=== PATIENT | female | born 1955 | race Caucasian/White ===

== ENCOUNTER → 2017-02-28 | Outpatient (CLI) | payer OTHER | LOC: M WHC 15:07 | PROVIDERS: ATTEND Nurse Practitioner Family | DX: Z12.31 Encounter for screening mammogram for malignant neoplasm of breast (principal) ==

== ENCOUNTER → 2017-02-28 | Outpatient (REF) | payer OTHER | LOC: M SFHCWAGY 15:08 | PROVIDERS: ATTEND Nurse Practitioner Family | DX: Z12.4 Encounter for screening for malignant neoplasm of cervix (principal) ==

== ENCOUNTER → 2018-01-01 | Outpatient (REF) | payer MEDICAID ==
[2018-01-01 12:18] LABS: C REACTIVE PROTEIN QUANTITATIV 0.76 MG/DL (0.00-0.30); RHEUMATOID FACTOR QUANT < 10.0 IU/ML (0-15.0)
[2018-01-01 12:18] LABS: URIC ACID 4.3 MG/DL (2.6-6.0)
== END ==
LOC: M SFHCPLAZ 10:02
DX: M13.0 Polyarthritis, unspecified (principal)

== ENCOUNTER → 2019-03-05 | Outpatient (REF) | payer OTHER | LOC: M SFHCPLAZ 11:00 | PROVIDERS: ATTEND Family Medicine | DX: Z53.9 Procedure and treatment not carried out, unspecified reason (principal); B35.1 Tinea unguium ==

== ENCOUNTER → 2019-04-20 | Outpatient (REF) | payer OTHER ==
[~2019-04-20] MED LIST: PAXI20TA29 PO
[2019-04-20 17:10] LABS: BASO # 0.1 10^3/uL (0.0-0.2); BASO % 0.7 % (0.0-1.0); EOS # 0.4 10^3/uL (0.0-0.50); EOS % 3.6 % (0.0-3.0); HEMATOCRIT 46.8 % (36.0-47.0); LYMPH # 2.8 10^3/uL (1.5-4.5); LYMPH % 26.5 % (24.0-44.0); MEAN CORPUSCULAR HEMOGLOBIN 30.8 pg (27.0-33.0); MEAN CORPUSCULAR HGB CONC 32.1 g/dl (32.0-36.5); MEAN CORPUSCULAR VOLUME 96.1 fl (80.0-96.0); MONO # 0.6 10^3/uL (0.0-0.8); NEUTROPHILS # 6.6 10^3/uL (1.8-7.7); NEUTROPHILS % 62.7 % (36.0-66.0); PLATELET COUNT, AUTOMATED 305 10^3/uL (150-450); RED BLOOD COUNT 4.87 10^6/uL (4.00-5.40); WHITE BLOOD COUNT 10.5 10^3/uL (4.0-10.0)
[2019-04-20 17:29] LABS: INR 0.95; PROTHROMBIN TIME 12.8 SECONDS (12.1-14.4)
[2019-04-20 19:36] LABS: ALBUMIN 4.1 GM/DL (3.2-5.2); ALT/SGPT 27 U/L (12-78); BILIRUBIN,TOTAL 0.3 MG/DL (0.2-1.0); BLOOD UREA NITROGEN 14 MG/DL (7-18); CALCIUM LEVEL 9.7 MG/DL (8.8-10.2); CARBON DIOXIDE LEVEL 29 MEQ/L (21-32); CHLORIDE LEVEL 108 MEQ/L (98-107); CREATININE FOR GFR 0.68 MG/DL (0.55-1.30); GLOMERULAR FILTRATION RATE > 60.0 (>45); GLUCOSE, FASTING 101 MG/DL (70-100); SODIUM LEVEL 142 MEQ/L (136-145); TOTAL PROTEIN 7.3 GM/DL (6.4-8.2)
== END ==
LOC: M SFHCPLAZ 13:20
PROVIDERS: ATTEND Family Medicine
DX: Z01.818 Encounter for other preprocedural examination (principal); B35.1 Tinea unguium

== ENCOUNTER 2019-04-21 09:37 | Day surgery (SDC) | payer OTHER ==
[~2019-04-21] VITALS: Ht 157.5 cm; Wt 61.2 kg
[2019-04-21] MEDS ORDERED: EPINEPHrine INJ 1 MG/ML 1ML AMP ONE (09:38)
[2019-04-21] MEDS ORDERED: ROPIvacaine 0.5% 30 ML INJECTION (J2795 PER 1MG) ONE (09:38)
[2019-04-21] MEDS ORDERED: ceFAZolin SOD 1 GM in D5W MINI-BAG PLUS 50 ML IV ONE (10:00)
[2019-04-21] MEDS ORDERED: LR 1,000 ML IV ONE (10:00)
[2019-04-21] MEDS ORDERED: PROPOFOL 200 MG/20 ML VIAL As Ordered ONE (10:25)
[2019-04-21] MEDS ORDERED: fentaNYL 100 MCG/2 ML INJECTION (J3010) As Ordered ONE ×3 (10:25→13:44)
[2019-04-21] MEDS ORDERED: LIDOCAINE 2% INJ 100 MG/5 ML SDV (FOR ANES.) As Ordered ONE (10:25)
[2019-04-21] MEDS ORDERED: MIDAZOLAM INJ 2 MG/2 ML VIAL (J2250) As Ordered ONE ×2 (10:26→10:59)
[2019-04-21] MEDS ORDERED: fentaNYL 100 MCG/2 ML INJECTION (J3010) IV ONE (12:15)
[2019-04-21] MEDS ORDERED: MIDAZOLAM INJ 2 MG/2 ML VIAL (J2250) IV ONE (12:15)
[2019-04-21] MEDS ORDERED: BUPIVACAINE HCL 0.5% 30 ML VIAL As Ordered ONE (12:16)
[2019-04-21] MEDS ORDERED: ePHEDrine SULFATE 25 MG/5 ML(5MG/ML) SYRINGE As Ordered ONE (13:09)
[2019-04-21] MEDS ORDERED: KETOROLAC 60 MG/2 ML VIAL (J1885) As Ordered ONE (14:10)
[2019-04-21] MEDS ORDERED: dexameTHASONE 4 MG/ML 1ML VIAL (J1100) As Ordered ONE (14:10)
[2019-04-21] MEDS ORDERED: ONDANSETRON 4MG/2ML VIAL (J2405) As Ordered ONE (14:10)
[2019-04-21] MEDS ORDERED: LR 1,000 ML IV SCH ×2 (16:45)
[2019-04-21] MEDS ORDERED: fentaNYL 100 MCG/2 ML INJECTION (J3010) IV PRN (16:45)
[2019-04-21] MEDS ORDERED: oxyCODONE 5MG TAB PO PRN ×2 (16:45)
[2019-04-21] MEDS ORDERED: ONDANSETRON 4MG/2ML VIAL (J2405) IV PRN (16:45)
[2019-04-21] MEDS: NORCO, ANEXSIA 5/325MG TABLET (HYDROcodone/ACETAMINOPHEN) PO PRN ×2 (16:55→17:32)
[2019-04-21 20:07] VITALS: BP 141/87
[2019-04-22 10:27] LABS: HEP C VIRUS AB INDEX SOURCE PT 0.1 INDEX (0.0-0.8); HEPATITIS B SURFACE ANTIGEN NEGATIVE (NEGATIVE)
--- NOTE | 2019-04-22 12:19 | REP ---
C-ARM VIEWS, RIGHT FOOT: Multiple C-arm views of the right foot are performed. Metallic internal fixation bridges the 1st metatarsophalangeal joint. Later images show a metallic pin extending through the phalanges of both the 2nd and 3rd toes. Structures are well aligned. 51 seconds fluoroscopy time utilized. Electronically Signed by Michele Aiken MD 04/23/2019 10:54 A
--- NOTE | 2019-04-23 12:18 | RO ---
DATE OF PROCEDURE: 04/21/2019 PREOPERATIVE DIAGNOSES: Right hallux valgus deformity with first metatarsophalangeal joint (MTP) arthritis and 2nd and 3rd hammertoes. POSTOPERATIVE DIAGNOSES: Right hallux valgus deformity with first metatarsophalangeal joint arthritis and 2nd and 3rd hammertoes. PROCEDURE: 1. Right first metatarsophalangeal joint fusion. 2. Right calcaneal bone graft. 3. Repair of 2nd hammertoe. 4. Repair of 3rd hammertoe. SURGEON: Princess Mijares MD BLUNGER: TAMICA Flowers ANESTHESIA: Laryngeal mask airway (LMA) with popliteal nerve block. ESTIMATED BLOOD LOSS (EBL): 75 mL. COMPLICATIONS: None. CONDITION: Stable to recovery. INDICATIONS: Janeth Patricia is a 64-year-old female who has had longstanding pain from her severe bunion deformity with associated arthritis. She presents for forefoot reconstruction. Risks and benefits of surgery were discussed with the patient in detail and include, but are not limited to infection, damage to nerves and blood vessels, continued pain and stiffness, need for additional procedures. DESCRIPTION OF PROCEDURE: The patient was met in the preoperative holding area where the right lower extremity was marked as the correct operative site. She underwent a popliteal nerve block. She was then taken to the operating room where she was placed in the supine position on the operating room table. Bony prominences were well padded. The patient underwent anesthesia without difficulty. A Ahuja was placed and removed at the end of the case. A well-padded tourniquet was placed on the right upper thigh. Right lower extremity was prepped and draped in normal sterile fashion. The patient received preoperative antibiotics within 60 minutes of incision. An official time-out was held where the correct patient, operative site and operative procedure were verified. The right lower extremity was exsanguinated with an Esmarch and tourniquet was inflated to 250 mmHg. It was up for 150 minutes. Incision was made directly over the first MTP joint. The EHL tendon was retracted laterally. The capsule was incised. There was found to be moderate to severe arthritis on both sides of the joint. The remaining cartilage was removed with a curet. The bone was penetrated on both sides using a 0.062 K-wire. The toe was then reduced in place quite easily. At this point, a small stab incision was made in the lateral aspect of the calcaneal tuberosity. Blunt dissection to the level of bone was performed. Using a 4.0 drill sleeve, calcaneal bone graft was removed. This bone was placed into the first MTP joint. The joint was then pinned in appropriate position. A 3.0 mm lag screw was placed across the joint. This had good compression. Following this a 5 degree medium right medical first MTP joint was selected. It was placed over the first MTP joint. I did bend the plate slightly and it had a nice fit. It was secured distally with 2.0 mm locking screws. Further compression was obtained through the plate using the oblong hole. Remaining 3.5 mm screws were placed proximally in the metatarsal. When I was satisfied with compression and hardware placement, attention was then turned to the 2nd and 3rd toe. An incision was made in the 2nd web space. Both the 2nd and 3rd extensor tendons were identified. These were lengthened in a Z lengthen fashion. This allowed reduction of the deformity at the MTP joint. Following this, the proximal interphalangeal (PIP) joint on both the 2nd and 3rd toe was exposed. Cartilage was removed using a 39 saw. Both joints were reduced and pinned in place using a 0.062 wire. Reduction and hardware placement were confirmed using mini C-arm fluoroscopy. When I was satisfied with reduction and hardware placement, all wounds were copiously irrigated. Any remaining bone graft was placed into the dorsal aspect of the first MTP joint after I burred holes on both the medial and lateral sides for the bone graft. The capsule was closed using #2-0 Vicryl. Soft tissues were closed using #3-0 Vicryl throughout the foot. The skin was closed using #3-0 nylon and #4-0 Monocryl at the toes. A sterile dressing was applied, and the patient was placed into a well-padded splint. PLAN: The patient will be non-weightbearing for 6 weeks. She will see me back in 2 weeks for wound check and placement into a boot. The pins will remain for 6 weeks. She will be on aspirin for deep vein thrombosis (DVT) prophylaxis. MILY
== END 2019-04-21 20:07 | disposition home or self-care (01) ==
LOC: M SDC 09:37
PROVIDERS: ATTEND Orthopaedic Surgery
DX: M20.11 Hallux valgus (acquired), right foot (principal); M20.41 Other hammer toe(s) (acquired), right foot; K21.9 Gastro-esophageal reflux disease without esophagitis; F41.9 Anxiety disorder, unspecified; F32.9 Major depressive disorder, single episode, unspecified; F17.210 Nicotine dependence, cigarettes, uncomplicated; Z79.899 Other long term (current) drug therapy
CPT/HCPCS: 20902; 28285; 28750; 36415; 64445; 76000; 86803; 87340; 87806; C1713; J0690; J1100; J1885; J2250; J2405; J2795; J3010

== ENCOUNTER 2019-09-30 09:34 | Day surgery (SDC) | payer OTHER ==
[~2019-09-30] VITALS: Ht 157.5 cm; Wt 60.3 kg
[~2019-09-30 09:34] MED LIST changes: +LIDOCAINE 2% INJ 100 MG/5 ML SDV (FOR ANES.) As Ordered ONE; +MIDAZOLAM INJ 2 MG/2 ML VIAL (J2250) As Ordered ONE; +PROPOFOL 200 MG/20 ML VIAL As Ordered ONE; +fentaNYL 100 MCG/2 ML INJECTION (J3010) As Ordered ONE
[2019-09-30] MEDS ORDERED: BUPR150T3 (09:47)
[2019-09-30] MEDS ORDERED: LR 1,000 ML IV ONE (10:00)
[2019-09-30] MEDS ORDERED: ceFAZolin SOD 2 GM in IV 1 EA IV ONE (10:00)
[2019-09-30] MEDS ORDERED: BUPIVACAINE HCL 0.5% 30 ML VIAL As Ordered ONE (10:19)
[2019-09-30] MEDS ORDERED: PHENYLephrine HCL 500 MCG/5 ML (100MCG/ML) SYRINGE (J2370) As Ordered ONE (10:36)
[2019-09-30] MEDS ORDERED: dexameTHASONE 4 MG/ML 1ML VIAL (J1100) As Ordered ONE (10:38)
[2019-09-30] MEDS ORDERED: ePHEDrine SULFATE 25 MG/5 ML(5MG/ML) SYRINGE As Ordered ONE (10:38)
[2019-09-30] MEDS ORDERED: ONDANSETRON 4MG/2ML VIAL (J2405) As Ordered ONE (10:54)
[2019-09-30] MEDS ORDERED: KETOROLAC 60 MG/2 ML VIAL (J1885) As Ordered ONE (11:08)
[2019-09-30] MEDS ORDERED: fentaNYL 100 MCG/2 ML INJECTION (J3010) As Ordered ONE (11:13)
[2019-09-30] MEDS ORDERED: ACETAMINOPHEN 1000MG 100ML IV BTL (OFIRMEV) (J0131 PER 10MG) As Ordered ONE (11:36)
[2019-09-30] MEDS ORDERED: PROPOFOL 200 MG/20 ML VIAL As Ordered ONE (12:40)
[2019-09-30] MEDS ORDERED: fentaNYL 100 MCG/2 ML INJECTION (J3010) IV PRN (13:30)
[2019-09-30] MEDS ORDERED: ONDANSETRON 4MG/2ML VIAL (J2405) IV PRN (13:30)
[2019-09-30] MEDS ORDERED: LR 1,000 ML IV SCH ×2 (13:30→14:31)
[2019-09-30] MEDS ORDERED: METOCLOPRAMIDE INJ 10MG/2ML VIAL (J2765) IV PRN (13:30)
[2019-09-30] MEDS: oxyCODONE 5MG TAB PO PRN ×2 (13:31→14:25)
--- NOTE | 2019-09-30 13:52 | REP ---
Clinical: Status post fixation. Technique: Intraoperative fluoroscopic imaging using portable C-arm technique. Findings: Multiple images demonstrate the patient to be status post fixation and correction at the first tarsometatarsal joint. Total fluoroscopic time 35 seconds. Electronically Signed by Gordon Dickens MD 09/30/2019 01:44 P
[2019-09-30] MEDS ORDERED: oxyCODONE 5MG TAB PO PRN ×2 (14:31)
--- NOTE | 2019-09-30 14:56 | RO ---
DATE OF PROCEDURE: 09/30/2019 PREOPERATIVE DIAGNOSIS: Left severe hallux valgus deformity. POSTOPERATIVE DIAGNOSIS: Left severe hallux valgus deformity. PROCEDURE: 1. Left first metatarsal phalangeal joint arthrodesis. 2. Calcaneal bone graft. SURGEON: Princess Mijares MD MANAGER RADIO: Luca Roy PA-C ANESTHESIA: Laryngeal mask airway (LMA). ESTIMATED BLOOD LOSS: 25 mL. COMPLICATIONS: None. CONDITION: Stable to recovery. IMPLANTS: [employer] [facility] fusion plate, medium size, 5 degrees with associated 3.5 mm and 2.7 mm cortical and locking screws. Also, one DART-FIRE 3.0 mm headed screw. INDICATIONS: Janeth Patricia is a 64-year-old female who has had longstanding pain and deformity from a hallux valgus deformity. She has failed conservative measures. Risks and benefits of surgery were discussed with the patient in detail and included, but are not limited too, infection, damage to the nerves and blood vessels, continued pain and stiffness, need for additional procedures. Informed consent was obtained in the office. PROCEDURE: Patient was met in the preoperative holding are where her left lower extremity was marked as the correct operative site. She was taken to the operating room where she underwent LMA anesthesia. She was placed in supine position on the operating room table. Bony prominences were well padded. A well padded tourniquet was placed on the left upper thigh. Antibiotics were given within 60 minutes prior to incision. A chlorhexidine scrub was performed of the left lower extremity then it was prepped and draped in the normal sterile fashion. An official time out was held with the correct patient, operative extremity and procedure were verified. Leg was exsanguinated with an Esmarch bandage and tourniquet was inflated to 250 mmHg. An incision was made directly over the first MTP joint. The EHL tendon was identified and retracted laterally. Capsule was incised. There was moderate to severe arthritis throughout the MTP joint, mainly on the metatarsal side. The joint was thoroughly debrided using the rongeur and curettes. Copious irrigation was performed. Following this, using a 0.062 K-wire multiple holes were drilled, again on both side of the joint, to perforate the subchondral bone. After the joint was adequately prepared, attention was turned to the lateral heel. A small incision was made laterally over the calcaneal tuberosity. Blunt dissection was performed to avoid the sural nerve and peroneal tendons. Using a 4.0 split sleeve, a small amount of calcaneal bone graft was obtained. This was then placed in the first MTP joint. A small amount of bone graft was saved for the end of the procedure. Following this, the joint was pinned in place with slight dorsiflexion and valgus. I used the mini C-arm in AP, oblique and lateral views to ensure adequate alignment of the toe. When I was satisfied with it, a 3.0 mm lag screw was placed across the joint. This gave good compression. Following this, a medium 5 degree [employer] medical plate was selected. It was secured distally using a 2.7 mm locking screw and one 3.5 mm cortical screw to reflect the plate down. Proximally, I obtained good compression using the oblong hole with a 3.5 mm cortical screw. Two 3.5 mm locking screws were then placed in this portion of the plate as well. Final x-rays were performed in AP, oblique and lateral views. Alignment was found to be satisfactory. There was good compression. Hardware placement was satisfactory as well. Using a bur, two small troughs were made over the anterior aspect of the joint where remaining bone graft was packed. The capsule was closed using #2-0 Vicryl. Following this, copious irrigation was performed. Soft tissues were closed using #3-0 Vicryl and the skin was closed using #3-0 nylon. The patient was placed into a well padded splint. She was extubated and the transferred to the recovery room in stable condition. Luca Roy PA-C was present for the entire procedure and was essential for aid in soft tissue retraction, hardware placement, closure and overall decrease in tourniquet time. PLAN: The patient will be non-weightbearing on the left lower extremity. She will be on aspirin 81 mg by mouth twice a day for deep vein thrombosis (DVT) prophylaxis. I will see her back in two weeks for suture removal. MILY
[2019-09-30 15:05] VITALS: BP 134/79
== END 2019-09-30 15:14 | disposition home or self-care (01) ==
LOC: M SDC 09:34
PROVIDERS: ATTEND Orthopaedic Surgery
DX: M20.12 Hallux valgus (acquired), left foot (principal); K58.8 Other irritable bowel syndrome; K21.9 Gastro-esophageal reflux disease without esophagitis; Z87.891 Personal history of nicotine dependence; Z79.899 Other long term (current) drug therapy
CPT/HCPCS: 20900; 28750; 76000; C1713; J0131; J0690; J1100; J1885; J2250; J2370; J2405; J3010

== ENCOUNTER → 2019-12-24 | Outpatient (REF) | payer OTHER ==
[~2019-12-24] MED LIST changes: +BUPR150T3; -LIDOCAINE 2% INJ 100 MG/5 ML SDV (FOR ANES.) As Ordered ONE; -MIDAZOLAM INJ 2 MG/2 ML VIAL (J2250) As Ordered ONE; -PROPOFOL 200 MG/20 ML VIAL As Ordered ONE; -fentaNYL 100 MCG/2 ML INJECTION (J3010) As Ordered ONE
[2019-12-24 16:07] LABS: BASO # 0.1 10^3/uL (0.0-0.2); BASO % 1.2 % (0.0-1.0); EOS # 0.6 10^3/uL (0.0-0.5); EOS % 6.5 % (0.0-3.0); HEMATOCRIT 43.5 % (36.0-47.0); HEMOGLOBIN 13.9 g/dl (12.0-15.5); LYMPH # 3.2 10^3/uL (1.5-5.0); LYMPH % 35.2 % (24.0-44.0); MEAN CORPUSCULAR HEMOGLOBIN 29.7 pg (27.0-33.0); MEAN CORPUSCULAR VOLUME 92.9 fl (80.0-96.0); MONO # 0.7 10^3/uL (0.0-0.8); MONO % 7.2 % (0.0-5.0); NEUTROPHILS # 4.6 10^3/uL (1.5-8.5); NEUTROPHILS % 49.6 % (36.0-66.0); PLATELET COUNT, AUTOMATED 311 10^3/uL (150-450); RED BLOOD COUNT 4.68 10^6/uL (4.00-5.40); WHITE BLOOD COUNT 9.2 10^3/uL (4.0-10.0)
[2019-12-24 16:30] LABS: ERYTHROCYTE SEDIMENTATION RATE 4 mm/hr (0-30)
== END ==
LOC: M LABDRAW1 15:24
PROVIDERS: ATTEND Orthopaedic Surgery
DX: Z47.89 Encounter for other orthopedic aftercare (principal)

== ENCOUNTER → 2020-09-20 | Outpatient (CLI) | payer OTHER ==
--- NOTE | 2020-09-20 11:02 | REP ---
INDICATION: FORMER CIGARETTE SMOKER, LUNG CANCER SCREENING COMPARISON: None. TECHNIQUE: Axial noncontrast images from the thoracic inlet to the upper abdomen using low-dose lung screening technique (LDCT). FINDINGS: Bilateral lung joseph are well aerated and without consolidation, effusion, or pneumothorax. Subtle, small scattered ground-glass nodular densities are identified measuring less than 5 mm. No further significant nodule or mass lesion appreciated. Tracheobronchial tree is patent. Atherosclerotic changes to the thoracic aorta and coronary arteries noted. IMPRESSION: Lung rads category 2. Small scattered non solid densities measuring less than 5 mm. Management recommendations include annual low-dose CT surveillance. <Electronically signed by Gordon Dickens > 09/20/20 1044
== END ==
LOC: M RAD 10:09
PROVIDERS: ATTEND Nurse Practitioner Family
DX: R91.8 Other nonspecific abnormal finding of lung field (principal); Z87.891 Personal history of nicotine dependence

== ENCOUNTER 2020-11-14 14:16 | Day surgery (SDC) | payer OTHER ==
[~2020-11-14] VITALS: Ht 157.5 cm; Wt 63.0 kg
[~2020-11-14 14:16] MED LIST changes: +BUPIVACAINE HCL 0.5% 30 ML VIAL As Ordered ONE; +ceFAZolin SOD 2 GM in IV 1 EA IV ONE
[2020-11-14] MEDS ORDERED: ACETAMINOPHEN 1000MG 100ML IV BTL (OFIRMEV) (J0131 PER 10MG) As Ordered ONE (15:44)
[2020-11-14] MEDS ORDERED: ePHEDrine SULFATE 25 MG/5 ML(5MG/ML) SYRINGE As Ordered ONE (15:44)
[2020-11-14] MEDS ORDERED: fentaNYL 250 MCG/5 ML INJECTION (J3010) As Ordered ONE (15:44)
[2020-11-14] MEDS ORDERED: PHENYLephrine HCL 500 MCG/5 ML (100MCG/ML) SYRINGE (J2370) As Ordered ONE (15:44)
[2020-11-14] MEDS ORDERED: MIDAZOLAM INJ 2MG/2ML VIAL (J2250 PER 1MG) As Ordered ONE (15:44)
[2020-11-14] MEDS ORDERED: LIDOCAINE 2% 100MG/5ML SDV (FOR ANES.) As Ordered ONE (15:45)
[2020-11-14] MEDS ORDERED: ONDANSETRON 4MG/2ML VIAL As Ordered ONE (15:45)
[2020-11-14] MEDS ORDERED: ROCURONIUM BROMIDE 50 MG/5 ML VIAL As Ordered ONE (15:45)
[2020-11-14] MEDS ORDERED: propofoL 200 MG/20 ML VIAL As Ordered ONE (15:45)
[2020-11-14] MEDS ORDERED: dexameTHASONE 4 MG/ML 1ML VIAL (J1100 PER 1MG) As Ordered ONE (15:45)
[2020-11-14] MEDS ORDERED: oxyCODONE 5MG TAB As Ordered ONE (19:33)
[2020-11-14] MEDS: fentaNYL 100 MCG/2 ML INJECTION (J3010) IV PRN ×4 (19:56→20:16)
[2020-11-14] MEDS ORDERED: fentaNYL 100 MCG/2 ML INJECTION (J3010) As Ordered ONE (19:56)
[2020-11-14] MEDS ORDERED: MEPERIDINE INJ 25 MG/ML VIAL (J2175) IV PRN (20:15)
[2020-11-14] MEDS ORDERED: oxyCODONE 5MG TAB PO PRN (20:15)
[2020-11-14] MEDS ORDERED: diphenhydrAMINE 50MG/ML VIAL (J1200) IV PRN (20:15)
[2020-11-14] MEDS ORDERED: HYDROMORPHONE HCL 0.5 MG/ 0.5 ML SYRINGE (J1170 PER 1) IV PRN (20:15)
[2020-11-14] MEDS ORDERED: LR 1,000 ML IV SCH ×2 (20:15)
[2020-11-14] MEDS ORDERED: METOCLOPRAMIDE INJ 10MG/2ML VIAL (J2765 PER 1) IV PRN (20:15)
[2020-11-14 21:05] VITALS: BP 173/101
--- NOTE | 2020-11-15 09:37 | REP ---
INDICATION: LEFT SECOND AND THIRD HAMMERTOES, MINI C-ARM. COMPARISON: None. TECHNIQUE: Four views. 17 seconds of fluoroscopy time. FINDINGS: A sequence of 4 last image hold fluoroscopically obtained spot radiographs of the left forefoot document pinning of the 2nd and 3rd digits. Old arthrodesis of the 1st MTP joint. IMPRESSION: Procedural imaging. <Electronically signed by Woodrow Carias > 11/15/20 0901
== END 2020-11-14 21:18 | disposition home or self-care (01) ==
LOC: M SDC 14:16
PROVIDERS: ATTEND Orthopaedic Surgery
DX: M20.42 Other hammer toe(s) (acquired), left foot (principal); I10 Essential (primary) hypertension; K21.9 Gastro-esophageal reflux disease without esophagitis; K58.8 Other irritable bowel syndrome; F32.9 Major depressive disorder, single episode, unspecified; Z79.899 Other long term (current) drug therapy
CPT/HCPCS: 28285; 36415; 76000; 87389; J0131; J0690; J1100; J2250; J2370; J2405; J3010; U0002

== ENCOUNTER → 2021-03-24 | Outpatient (REF) | payer OTHER ==
[~2021-03-24] MED LIST changes: -BUPIVACAINE HCL 0.5% 30 ML VIAL As Ordered ONE; +BUPR150T12; -BUPR150T3; -ceFAZolin SOD 2 GM in IV 1 EA IV ONE
[2021-03-24 12:39] LABS: ALBUMIN 3.7 GM/DL (3.2-5.2); ALT/SGPT 33 U/L (12-78); BILIRUBIN,TOTAL 0.4 MG/DL (0.2-1.0); BLOOD UREA NITROGEN 13 MG/DL (7-18); CALCIUM LEVEL 9.7 MG/DL (8.8-10.2); CARBON DIOXIDE LEVEL 32 MEQ/L (21-32); CHLORIDE LEVEL 106 MEQ/L (98-107); CHOLESTEROL LEVEL 202 MG/DL (<200); CHOLESTEROL RISK RATIO 2.729 (<5); CREATININE FOR GFR 0.64 MG/DL (0.55-1.30); FREE T4 0.91 NG/DL (0.76-1.46); GLOMERULAR FILTRATION RATE > 60.0 (>45); GLUCOSE, FASTING 93 MG/DL (70-100); HDL CHOLESTEROL 74 MG/DL (>40); LDL CHOLESTEROL 87 MG/DL (<100); NON-HDL-C 128 MG/DL; POTASSIUM SERUM 4.2 MEQ/L (3.5-5.1); SODIUM LEVEL 140 MEQ/L (136-145); TOTAL 25(OH) VITAMIN D 27.2 NG/ML (30.0-100.0); TRIGLYCERIDES LEVEL 204 MG/DL (<150)
== END ==
LOC: M SFHCCLAY 08:54
PROVIDERS: ATTEND Nurse Practitioner Family
DX: Z13.220 Encounter for screening for lipoid disorders (principal); R45.89 Other symptoms and signs involving emotional state; Z13.21 Encounter for screening for nutritional disorder

== ENCOUNTER → 2021-05-17 | Outpatient (REF) | payer OTHER ==
[2021-05-17 12:13] LABS: BLOOD UREA NITROGEN 12 MG/DL (7-18); CALCIUM LEVEL 9.8 MG/DL (8.8-10.2); CARBON DIOXIDE LEVEL 28 MEQ/L (21-32); CHLORIDE LEVEL 103 MEQ/L (98-107); CREATININE FOR GFR 0.78 MG/DL (0.55-1.30); GLOMERULAR FILTRATION RATE > 60.0 (>45); GLUCOSE, FASTING 93 MG/DL (70-100); POTASSIUM SERUM 4.1 MEQ/L (3.5-5.1); SODIUM LEVEL 138 MEQ/L (136-145)
[2021-05-17 12:26] LABS: CREATININE, URINE 79.6 MG/DL; MALB URINE SIEMENS 36.6 MG/L; MAU/CREAT RATIO 45.9 MCG/MG (0.0-30.0)
== END ==
LOC: M SFHCPLAZ 09:24
PROVIDERS: ATTEND Nurse Practitioner Family
DX: I10 Essential (primary) hypertension (principal)

== ENCOUNTER → 2021-05-19 | Outpatient (REF) | payer OTHER | LOC: M SFHCWAGY 18:08 | PROVIDERS: ATTEND Advanced Practice Midwife | DX: Z12.4 Encounter for screening for malignant neoplasm of cervix (principal); R87.610 Atypical squamous cells of undetermined significance on cytologic smear of cervix (ASC-US) ==

== ENCOUNTER → 2021-05-19 | Outpatient (CLI) | payer OTHER ==
--- NOTE | 2021-05-26 06:33 | REPMRS ---
Patient History The patient states she had a clinical breast exam in May 2021. Patient is postmenopausal. Family history of ovarian cancer in niece. Covid vaccine 04/15/21 left arm. 05/15/21 left arm. 8-10 lb intentional weight loss. Patient states no breast complaints today. Patient has signed MRS History Sheet. Digital Woman Screen Mammo: May 19, 2021 - Exam #: [id number] Bilateral CC and MLO view(s) were taken. Technologist: RT Ashli Prior study comparison: February 28, 2017, digital woman screen mammo performed at [facility]. August 13, 2015, digital bilateral screening mammo, performed at [facility]. FINDINGS: There are scattered fibroglandular densities. Screening. Digital screening (2D) mammography was performed bilaterally in the CC and MLO projections. Additionally, breast tomosynthesis (3D mammography) was performed bilaterally in the CC and MLO projections. Todays exam was compared to the prior exam/exams.There are no prior DBT images for comparison. By history, the patient has no complaints of a palpable breast abnormality or other significant breast complaints. The breasts are unchanged in size and shape. There are no brenda-soft tissue densities or spiculated masses. There is no internal architectural distortion.Once again, stable benign appearing calcifications are seen. There are no suspicious brenda-calcific clusters. Skin thickening or nipple retraction is not present. IMPRESSION: BI-RADS Category 2- Benign Findings. There is no evidence of malignant alteration of the breasts. Followup examination recommended in one year. The Volpara volumetric breast density category is B, there are scattered areas of fibroglandular densities. This mammogram was read with the assistance of Dennoo,an FDA approved computer aided detection system for mammography. The lifetime Tyrer-Cuzick score is 6.7 % Negative x-ray reports should not delay surgical consultation if a dominant or clinically suspicious mass is present. Not all breast cancers can be identified by mammography. Therefore, we recommend that you continue to perform regular breast self-examination and physical examination and then promptly contact your physician of any concerns or changes. Adenosis and dense breasts may obscure an underlying neoplasm. Assessment: BI-RADS/ACR category 2 mammogram. Benign Findings. Recommendation Routine screening mammogram of both breasts in 1 year. Electronically Signed By: Alex Venegas, 05/19/21 0624
== END ==
LOC: M WHC 14:02
PROVIDERS: ATTEND Advanced Practice Midwife
DX: Z12.31 Encounter for screening mammogram for malignant neoplasm of breast (principal); Z80.41 Family history of malignant neoplasm of ovary; R92.1 Mammographic calcification found on diagnostic imaging of breast

== ENCOUNTER → 2021-06-16 | Outpatient (CLI) | payer OTHER ==
--- NOTE | 2021-06-16 14:24 | DEXAMM ---
INDICATION: Z13.820 SCR FOR OSTEOPOROSIS. COMPARISON: None. TECHNIQUE: Bone density was measured using dual-energy x-ray absorptionmetry (DEXA). FINDINGS: AP SPINE L1-L4 BMD 1.074 g/cm2 Young Adult T-Score -1.1 Age Matched Z-Score 0.4. LT FEMUR, TOTAL BMD 0.819 g/cm2 Young Adult T-Score -1.5 Age Matched Z-Score -0 point. LT NECK BMD 0.774 g/cm2 Young Adult T-Score -1.9 Age Matched Z-Score -0.5. RT FEMUR, TOTAL BMD 0.823 g/cm2 Young Adult T-Score -1.5 Age Matched Z-Score -0.3. RT NECK BMD 0.795 g/cm2 Young Adult T-Score -1.8 Age Matched Z-Score -0.3. IMPRESSION: There is low bone density of the spine. There is low bone density of the left hip. There is low bone density of the right hip. FOLLOW-UP: Recommendation for the next bone density exam: 2 years. <Electronically signed by Woodrow Carias > 06/16/21 1118
--- NOTE | 2021-06-16 14:42 | REP ---
INDICATION: R14.0 BLOATING SYMPTOM. COMPARISON: None TECHNIQUE: Transvesical imaging. Endovaginal imaging was deferred. FINDINGS: The uterus measures 6.7 x 2.6 x 3.3 cm. There are no uterine parenchymal masses. The endometrial echo complex measures 3 mm its greatest thickness. The right ovary measures 4 x 3.4 x 4 cm. Within the right ovary there is a 2 cm sized anechoic structure which exhibits posterior wall enhancement and increased through transmission. Left ovary was not visualized. Urinary bladder measures 11 x 7 x 9 cm. IMPRESSION: 1. Simple appearing right ovarian cyst. Two month follow-up is suggested. 2. Left ovary was not visualized. <Electronically signed by Alex Venegas > 06/16/21 [id number]
== END ==
LOC: M WHC 12:20
PROVIDERS: ATTEND Advanced Practice Midwife
DX: R14.0 Abdominal distension (gaseous) (principal); Z13.820 Encounter for screening for osteoporosis

== ENCOUNTER → 2021-07-26 | Outpatient (CLI) | payer OTHER ==
--- NOTE | 2021-07-26 10:33 | REP ---
INDICATION: N95.8,N94.89 MENOPAUSAL AND PERIMENOPAUSAL DISORDER COMPARISON: 06/16/2021 TECHNIQUE: Transabdominal pelvic ultrasound with color Doppler evaluation of the ovaries. FINDINGS: Bladder is unremarkable and measures 9.4 x 5.5 x 8.2 cm. Normal anteverted uterus measures 6.6 x 2.2 x 4.1 cm. The endometrial complex measures 3.8 mm thickness. No discrete uterine or endometrial abnormalities are appreciated. Left ovary is not visualized. Right ovary is normal in vascularity without evidence for torsion. Ovary measures 4.1 x 2.0 x 3.1 cm and includes 2.2 cm and 2.5 cm presumed physiologic cyst; R I = 0.69. No pelvic fluid or adnexal mass lesion. IMPRESSION: 1. Normal uterus and nonvisualization of the left ovary again noted. 2. Current examination now demonstrates 2 presumed physiologic cystic areas in the right ovary. Consider 4-6 week re-evaluation. <Electronically signed by Gordon Dickens > 07/26/21 [id number]
== END ==
LOC: M WHC 09:27
PROVIDERS: ATTEND Advanced Practice Midwife
DX: N95.8 Other specified menopausal and perimenopausal disorders (principal); N94.89 Other specified conditions associated with female genital organs and menstrual cycle

== ENCOUNTER → 2021-08-24 | Outpatient (CLI) | payer OTHER | LOC: M PLALAB 10:45 | PROVIDERS: ATTEND Advanced Practice Midwife | DX: N83.201 Unspecified ovarian cyst, right side (principal) ==

== ENCOUNTER → 2021-10-17 | Outpatient (CLI) | payer OTHER ==
[~2021-10-17] MED LIST changes: +ASPI81TA26 PO; -BUPR150T12; +BUPR150T12 PO; +D31000TA2 PO; +LISI10TA22 PO
--- NOTE | 2021-10-18 07:57 | ECGEPIP ---
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
== END ==
LOC: M RAD 14:21
PROVIDERS: ATTEND Anesthesiology
DX: Z01.818 Encounter for other preprocedural examination (principal); R03.0 Elevated blood-pressure reading, without diagnosis of hypertension

== ENCOUNTER → 2021-10-18 | Outpatient (CLI) | payer OTHER | LOC: M LABSMTC 11:24 | PROVIDERS: ATTEND Anesthesiology | DX: Z01.812 Encounter for preprocedural laboratory examination (principal); Z20.822 Contact with and (suspected) exposure to COVID-19 ==

== ENCOUNTER 2021-10-23 06:09 | Day surgery (SDC) | payer OTHER ==
[~2021-10-23] VITALS: Ht 157.5 cm; Wt 57.6 kg
[~2021-10-23 06:09] MED LIST changes: +LR 1,000 ML IV ONE; +ceFAZolin SOD 2 GM in IV 1 EA IV ONE
[2021-10-23 06:35] LABS: HEMATOCRIT 39.9 % (36.0-47.0); HEMOGLOBIN 12.7 g/dl (12.0-15.5); MEAN CORPUSCULAR HEMOGLOBIN 29.8 pg (27.0-33.0); MEAN CORPUSCULAR HGB CONC 31.8 g/dl (32.0-36.5); MEAN CORPUSCULAR VOLUME 93.7 fl (80.0-96.0); PLATELET COUNT, AUTOMATED 429 10^3/uL (150-450); RED BLOOD COUNT 4.26 10^6/uL (4.00-5.40); WHITE BLOOD COUNT 18.8 10^3/uL (4.0-10.0)
[2021-10-23] MEDS ORDERED: BUPIVACAINE/EPIN 0.25% 30 ML VIAL As Ordered ONE (07:07)
[2021-10-23] MEDS ORDERED: BUPIVACAINE HCL 0.25% 30ML VIAL As Ordered ONE (07:07)
[2021-10-23] MEDS ORDERED: propofoL 200 MG/20 ML VIAL As Ordered ONE (07:37)
[2021-10-23] MEDS ORDERED: dexameTHASONE 4 MG/ML 1ML VIAL (J1100 PER 1MG) As Ordered ONE (07:37)
[2021-10-23] MEDS ORDERED: ROCURONIUM BROMIDE 50 MG/5 ML VIAL As Ordered ONE (07:37)
[2021-10-23] MEDS ORDERED: LIDOCAINE 2% 100MG/5ML SDV (FOR ANES.) As Ordered ONE (07:37)
[2021-10-23] MEDS ORDERED: fentaNYL 100 MCG/2 ML INJECTION As Ordered ONE ×2 (07:37→08:25)
[2021-10-23] MEDS ORDERED: METOCLOPRAMIDE INJ 10MG/2ML VIAL (J2765 PER 1) As Ordered ONE (07:37)
[2021-10-23] MEDS ORDERED: SUGAMMADEX SODIUM 500 MG/5 ML VIAL (BRIDION) As Ordered ONE (07:37)
[2021-10-23] MEDS ORDERED: KETOROLAC 60MG 2ML VIAL As Ordered ONE (07:37)
[2021-10-23] MEDS ORDERED: MIDAZOLAM INJ 2MG/2ML VIAL (J2250 PER 1MG) As Ordered ONE (07:37)
[2021-10-23] MEDS ORDERED: ONDANSETRON 4MG/2ML VIAL As Ordered ONE (07:37)
[2021-10-23] MEDS ORDERED: ACETAMINOPHEN 1000MG 100ML IV BTL (OFIRMEV) (J0131 PER 10MG) As Ordered ONE (07:38)
[2021-10-23] MEDS ORDERED: PHENYLephrine 500MCG 5ML (100MCG/ML) SYRINGE As Ordered ONE (08:03)
[2021-10-23] MEDS ORDERED: ePHEDrine SULFATE 25 MG/5 ML(5MG/ML) SYRINGE As Ordered ONE (08:50)
[2021-10-23] MEDS ORDERED: ONDANSETRON 4MG/2ML VIAL IV PRN (09:45)
[2021-10-23] MEDS ORDERED: LR 1,000 ML IV SCH (09:45)
[2021-10-23] MEDS ORDERED: oxyCODONE 5MG TAB PO PRN (09:45)
[2021-10-23] MEDS ORDERED: fentaNYL 100 MCG/2 ML INJECTION IV PRN (09:45)
[2021-10-23] MEDS ORDERED: PERCOCET 5MG/325MG TAB PO PRN (09:45)
[2021-10-23 11:33] VITALS: BP 134/78
[2021-10-23] MEDS ORDERED: KETOROLAC 30 MG/ML 1ML VIAL IV SCH (15:00)
== END 2021-10-23 11:35 | disposition home or self-care (01) ==
LOC: M SDC 06:09
PROVIDERS: ATTEND Obstetrics & Gynecology
DX: N83.201 Unspecified ovarian cyst, right side (principal); N81.6 Rectocele; I10 Essential (primary) hypertension; K21.9 Gastro-esophageal reflux disease without esophagitis; Z79.899 Other long term (current) drug therapy; F41.9 Anxiety disorder, unspecified; F32.9 Major depressive disorder, single episode, unspecified; Z87.891 Personal history of nicotine dependence; Z79.82 Long term (current) use of aspirin
CPT/HCPCS: 36415; 57250; 58661; 85027; 86850; 86900; 86901; 88302; 88305; 88341; 88342; J0131; J0690; J1100; J1885; J2250; J2370; J2405; J2765; J3010

== ENCOUNTER → 2021-10-30 | Outpatient (CLI) | payer OTHER ==
[~2021-10-30] MED LIST changes: -LR 1,000 ML IV ONE; -ceFAZolin SOD 2 GM in IV 1 EA IV ONE
[2021-10-30 15:07] LABS: BLOOD UREA NITROGEN 18 MG/DL (7-18); CREATININE FOR GFR 0.78 MG/DL (0.55-1.30); GLOMERULAR FILTRATION RATE > 60.0 (>45)
== END ==
LOC: M LAB 13:59
PROVIDERS: ATTEND Otolaryngology
DX: Z01.812 Encounter for preprocedural laboratory examination (principal)

== ENCOUNTER → 2021-11-28 | Outpatient (CLI) | payer OTHER ==
[~2021-11-28] MED LIST changes: +PROHANCE 279.3MG/ML 15ML VIAL As Ordered ONE
--- NOTE | 2021-11-29 15:00 | REPVR ---
PROCEDURE INFORMATION: Exam: MR Head Without and With Contrast Exam date and time: 11/28/2021 6:09 PM Age: 66 years old Clinical indication: Dizziness; Additional info: Dizziness and giddiness TECHNIQUE: Imaging protocol: MR of the head without and with intravenous contrast. Contrast material: PROHANCE; Contrast volume: 11 ml; Contrast route: INTRAVENOUS (IV); COMPARISON: No relevant prior studies available. FINDINGS: Brain: Examination of the brain demonstrates normal morphology and signal intensity.No acute infarction, masses, midline shift or acute hemorrhage is seen. No acute intracranial abnormality is identified.There is no abnormal diffusion weighted signal intensity to suggest an acute ischemic event.The cortical woodson / white matter interfaces are preserved throughout the brain.Intracranial flow voids are well maintained. Cerebral ventricles: The ventricular system is not dilated and is appropriate for the patient's age. Bones/joints: Unremarkable. Paranasal sinuses: Mild mucosal thickening is seen in the paranasal sinuses. Mastoid air cells: Normal as visualized. No mastoid effusion. Internal auditory canals: The 7th and 8th cranial nerves are normal in thickness and signal intensity bilaterally. No discrete mass or abnormal enhancement is seen to suggest vestibular schwannoma or acoustic neuroma. Orbital cavity: Unremarkable. Soft tissues: Unremarkable. IMPRESSION: 1. No acute infarction, masses or hemorrhage is seen. No acute intracranial abnormality is identified. 2. No abnormal contrast enhancement is seen. 3. The 7th and 8th cranial nerves are normal in thickness and signal intensity bilaterally. No discrete mass or abnormal enhancement is seen to suggest vestibular schwannoma or acoustic neuroma. Electronically signed by: Trevor Land On 11/29/2021 14:59:25 PM
== END ==
LOC: M PLAIMG 11-06 10:39 → M RAD 17:03
PROVIDERS: ATTEND Otolaryngology
DX: R42 Dizziness and giddiness (principal)
CPT/HCPCS: 70553; A9576

== ENCOUNTER → 2022-01-10 | Outpatient (CLI) | payer OTHER ==
[~2022-01-10] MED LIST changes: -PROHANCE 279.3MG/ML 15ML VIAL As Ordered ONE
== END ==
LOC: M RAD 16:05
PROVIDERS: ATTEND Nurse Practitioner Adult Health
DX: R91.1 Solitary pulmonary nodule (principal)

== ENCOUNTER → 2022-03-28 | Outpatient (CLI) | payer MEDICARE, OTHER ==
[~2022-03-28] MED LIST changes: -D31000TA2 PO; +VITA100093 PO
[2022-03-28 14:23] LABS: ALBUMIN 3.9 GM/DL (3.2-5.2); ALT/SGPT 28 U/L (12-78); BILIRUBIN,TOTAL 0.3 MG/DL (0.2-1.0); BLOOD UREA NITROGEN 21 MG/DL (7-18); CALCIUM LEVEL 9.7 MG/DL (8.8-10.2); CARBON DIOXIDE LEVEL 27 MEQ/L (21-32); CHLORIDE LEVEL 109 MEQ/L (98-107); CHOLESTEROL LEVEL 234 MG/DL (<200); CHOLESTEROL RISK RATIO 3.545 (<5); CREATININE FOR GFR 0.76 MG/DL (0.55-1.30); GLOMERULAR FILTRATION RATE > 60.0 (>45); GLUCOSE, FASTING 86 MG/DL (70-100); HDL CHOLESTEROL 66 MG/DL (>40); LDL CHOLESTEROL 144 MG/DL (<100); NON-HDL-C 168 MG/DL; POTASSIUM SERUM 4.5 MEQ/L (3.5-5.1); SODIUM LEVEL 143 MEQ/L (136-145); TOTAL PROTEIN 6.9 GM/DL (6.4-8.2); TRIGLYCERIDES LEVEL 118 MG/DL (<150)
== END ==
LOC: M PLALAB 08:43
PROVIDERS: ATTEND Nurse Practitioner Adult Health
DX: Z00.00 Encounter for general adult medical examination without abnormal findings (principal); E55.9 Vitamin D deficiency, unspecified; Z13.220 Encounter for screening for lipoid disorders; Z13.29 Encounter for screening for other suspected endocrine disorder

== ENCOUNTER → 2022-05-02 | Outpatient (CLI) | payer OTHER | LOC: M LABSMTC 11:26 | PROVIDERS: ATTEND Anesthesiology | DX: Z01.818 Encounter for other preprocedural examination (principal); Z11.52 Encounter for screening for COVID-19 ==

== ENCOUNTER → 2022-05-20 | Outpatient (CLI) | payer OTHER | LOC: M LABSMTC 09:05 | PROVIDERS: ATTEND Anesthesiology | DX: Z01.818 Encounter for other preprocedural examination (principal); Z11.52 Encounter for screening for COVID-19 ==

== ENCOUNTER 2022-05-23 12:32 | Day surgery (SDC) | payer MEDICARE, OTHER ==
[~2022-05-23] VITALS: Ht 157.5 cm; Wt 58.0 kg
[~2022-05-23 12:32] MED LIST changes: +NS 1,000 ML IV ONE
[2022-05-23] MEDS ORDERED: LIDOCAINE 2% 100MG/5ML SDV (FOR ANES.) As Ordered ONE (14:00)
[2022-05-23] MEDS ORDERED: propofoL 200 MG/20 ML VIAL As Ordered ONE (14:00)
[2022-05-23 14:40] VITALS: BP 105/63
== END 2022-05-23 14:59 | disposition home or self-care (01) ==
LOC: M OPP 12:32
PROVIDERS: ATTEND Surgery
DX: R19.5 Other fecal abnormalities (principal); K62.5 Hemorrhage of anus and rectum; D12.5 Benign neoplasm of sigmoid colon; K57.30 Diverticulosis of large intestine without perforation or abscess without bleeding; K64.0 First degree hemorrhoids; Z79.82 Long term (current) use of aspirin; Z79.899 Other long term (current) drug therapy; Z87.891 Personal history of nicotine dependence

== ENCOUNTER → 2022-05-29 | Outpatient (REF) | payer MEDICARE, OTHER ==
[~2022-05-29] MED LIST changes: -NS 1,000 ML IV ONE
== END ==
LOC: M SFHCDERM 17:31
PROVIDERS: ATTEND Nurse Practitioner Family
DX: L82.1 Other seborrheic keratosis (principal)

== ENCOUNTER → 2022-10-18 | Outpatient (REF) | payer MEDICARE, OTHER | LOC: M LAB REF 16:02 | PROVIDERS: ATTEND Ophthalmology | DX: H02.831 Dermatochalasis of right upper eyelid (principal); H02.834 Dermatochalasis of left upper eyelid ==

== ENCOUNTER → 2023-03-18 | Outpatient (CLI) | payer MEDICARE, OTHER ==
[~2023-03-18] MED LIST changes: -PAXI20TA29 PO; +PAXI20TA30 PO
== END ==
LOC: M WHC 13:46
PROVIDERS: ATTEND Nurse Practitioner Adult Health
DX: Z12.31 Encounter for screening mammogram for malignant neoplasm of breast (principal)

== ENCOUNTER → 2023-05-03 | Outpatient (CLI) | payer MEDICARE, OTHER ==
[2023-05-03 14:45] LABS: ALBUMIN 4.3 G/DL (3.2-5.2); ALKALINE PHOSPHATASE 64 U/L (46-116); ALT/SGPT 18 U/L (7.0-40); AST/SGOT 10 U/L (<34); BILIRUBIN,TOTAL 0.5 MG/DL (0.3-1.2); BLOOD UREA NITROGEN 17 MG/DL (9-23); CARBON DIOXIDE LEVEL 28 MMOL/L (20-31); CHLORIDE LEVEL 103 MMOL/L (98-107); CREATININE FOR GFR 0.72 MG/DL (0.55-1.30); GLOMERULAR FILTRATION RATE > 60.0 (>45); GLUCOSE, FASTING 87 MG/DL (74-106); POTASSIUM SERUM 4.3 MMOL/L (3.5-5.1); SODIUM LEVEL 139 MMOL/L (136-145); TOTAL PROTEIN 7.3 G/DL (5.7-8.2)
== END ==
LOC: M PLALAB 12:04
PROVIDERS: ATTEND Nurse Practitioner Family
DX: L65.9 Nonscarring hair loss, unspecified (principal)

== ENCOUNTER → 2023-05-03 | Outpatient (CLI) | payer MEDICARE, OTHER ==
[2023-05-03 14:09] LABS: ALBUMIN 4.2 G/DL (3.2-5.2); ALKALINE PHOSPHATASE 64 U/L (46-116); ALT/SGPT 19 U/L (7.0-40); AST/SGOT 10 U/L (<34); BILIRUBIN,TOTAL 0.5 MG/DL (0.3-1.2); BLOOD UREA NITROGEN 17 MG/DL (9-23); CALCIUM LEVEL 9.9 MG/DL (8.3-10.6); CARBON DIOXIDE LEVEL 29 MMOL/L (20-31); CHLORIDE LEVEL 103 MMOL/L (98-107); CHOLESTEROL LEVEL 244 MG/DL (<200); CHOLESTEROL RISK RATIO 3.81 (<5); CREATININE FOR GFR 0.72 MG/DL (0.55-1.30); GLOMERULAR FILTRATION RATE > 60.0 (>45); GLUCOSE, FASTING 88 MG/DL (74-106); LDL CHOLESTEROL 130.4 MG/DL (<100); POTASSIUM SERUM 4.3 MMOL/L (3.5-5.1); SODIUM LEVEL 139 MMOL/L (136-145); TOTAL PROTEIN 7.3 G/DL (5.7-8.2); TRIGLYCERIDES LEVEL 248 MG/DL (<150)
[2023-05-03 14:11] LABS: TOTAL 25(OH) VITAMIN D 38.6 NG/ML (20.0-100.0)
== END ==
LOC: M PLALAB 11:59
PROVIDERS: ATTEND Nurse Practitioner Adult Health
DX: E55.9 Vitamin D deficiency, unspecified (principal); I10 Essential (primary) hypertension; E78.2 Mixed hyperlipidemia; L65.9 Nonscarring hair loss, unspecified; Z79.899 Other long term (current) drug therapy

== ENCOUNTER 2023-06-25 13:00 | Emergency (ER) | payer MEDICARE, OTHER ==
[~2023-06-25] VITALS: Ht 157.5 cm; Wt 58.0 kg
[2023-06-25 13:00] VITALS: TEMP 97.7
[2023-06-25 18:01] LABS: BASO # 0.1 10^3/uL (0.0-0.2); BASO % 0.9 % (0.0-1.0); EOS # 0.6 10^3/uL (0.0-0.5); HEMOGLOBIN 14.3 g/dl (12.0-15.5); LYMPH # 3.1 10^3/uL (1.5-5.0); MEAN CORPUSCULAR HEMOGLOBIN 31.7 pg (27.0-33.0); MEAN CORPUSCULAR HGB CONC 32.5 g/dl (32.0-36.5); MEAN CORPUSCULAR VOLUME 97.6 fl (80.0-96.0); MONO # 0.6 10^3/uL (0.0-0.8); MONO % 6.2 % (2.0-8.0); NEUTROPHILS # 4.8 10^3/uL (1.5-8.5); NEUTROPHILS % 52.6 % (36.0-66.0); PLATELET COUNT, AUTOMATED 306 10^3/uL (150-450); RED BLOOD COUNT 4.51 10^6/uL (4.00-5.40); WHITE BLOOD COUNT 9.2 10^3/uL (4.0-10.0)
[2023-06-25] MEDS ORDERED: NS 1,000 ML IV ONE (18:10)
[2023-06-25] MEDS ORDERED: MECLIZINE 25 MG TABLET PO ONE (18:10)
[2023-06-25] MEDS ORDERED: KETOROLAC 30 MG/ML 1ML VIAL IV ONE (18:10)
[2023-06-25 18:29] LABS: ALBUMIN 4.3 G/DL (3.2-5.2); ALKALINE PHOSPHATASE 67 U/L (46-116); ALT/SGPT 28 U/L (7.0-40); AST/SGOT 19 U/L (<34); BILIRUBIN,TOTAL 0.4 MG/DL (0.3-1.2); BLOOD UREA NITROGEN 20 MG/DL (9-23); CALCIUM LEVEL 10.1 MG/DL (8.3-10.6); CARBON DIOXIDE LEVEL 28 MMOL/L (20-31); CHLORIDE LEVEL 103 MMOL/L (98-107); CREATININE FOR GFR 0.68 MG/DL (0.55-1.30); GLOMERULAR FILTRATION RATE > 60.0 (>45); GLUCOSE, FASTING 92 MG/DL (74-106); POTASSIUM SERUM 4.2 MMOL/L (3.5-5.1); SODIUM LEVEL 142 MMOL/L (136-145); TOTAL PROTEIN 7.7 G/DL (5.7-8.2)
[2023-06-25 18:59] LABS: CK-MB VALUE MASS 1.2 NG/ML (<3.6)
[2023-06-25 19:03] LABS: MAGNESIUM LEVEL 1.5 MG/DL (1.8-2.4); THYROID STIMULATING HORMONE 1.132 uIU/ML (0.55-4.78)
[2023-06-25 19:04] LABS: FREE T4 1.08 NG/DL (0.89-1.76)
[2023-06-25 19:09] LABS: CPK CREATINE PHOSPHOKINASE 75 U/L (34-145)
[2023-06-25] MEDS ORDERED: ONDANSETRON 4MG 2ML VIAL IV ONE (19:15)
[2023-06-25 19:20] LABS: INR 0.88; PROTHROMBIN TIME 12.1 SECONDS (12.5-14.5)
[2023-06-25 19:21] LABS: PARTIAL THROMBOPLASTIN TIME 25.8 SECONDS (24.8-34.2)
[2023-06-25] MEDS ORDERED: MAGNESIUM OXIDE 400MG TAB (MAG-OX) PO ONE (20:15)
[2023-06-25] MEDS ORDERED: AUGMENTIN 875 MG TAB PO ONE (20:20)
[2023-06-25] MEDS ORDERED: AMOX875T2 PO (20:20)
[2023-06-25] MEDS ORDERED: predniSONE 20 MG TAB PO ONE (20:20)
[2023-06-25] MEDS ORDERED: PRED20TA PO (20:20)
[2023-06-25] MEDS ORDERED: MECL1TAB31 PO (20:20)
[2023-06-25] MEDS ORDERED: hydrALAZINE 20MG/ML 1ML VIAL IV STA (20:40)
[2023-06-25 20:45] VITALS: BP 190/90
[2023-06-25 21:10] VITALS: BP 157/83; O2SAT 99
== END 2023-06-25 21:21 | disposition home or self-care (01) ==
LOC: M ED 13:00
DX: J01.90 Acute sinusitis, unspecified (principal); E83.42 Hypomagnesemia; H81.4 Vertigo of central origin; R00.1 Bradycardia, unspecified; I10 Essential (primary) hypertension; F32.A Depression, unspecified; K58.9 Irritable bowel syndrome, unspecified; R91.8 Other nonspecific abnormal finding of lung field; F12.10 Cannabis abuse, uncomplicated; Z86.79 Personal history of other diseases of the circulatory system; Z79.2 Long term (current) use of antibiotics; Z79.811 Long term (current) use of aromatase inhibitors; Z79.899 Other long term (current) drug therapy
CPT/HCPCS: 70450; 72125; 80053; 82550; 82553; 83735; 84439; 84443; 84484; 85025; 85610; 85730; 93005; 96361; 96374; 96375; 99284; J0360; J1885; J2405; J7512

== ENCOUNTER → 2023-11-11 | Outpatient (CLI) | payer MEDICARE, OTHER ==
[~2023-11-11] MED LIST changes: +AMOX875T2 PO; +MECL-209 PO; +PRED20TA PO
== END ==
LOC: M WUC 13:59
PROVIDERS: ATTEND Nurse Practitioner Adult Health
DX: R05.9 Cough, unspecified (principal)

== ENCOUNTER → 2023-12-05 | Outpatient (REF) | payer MEDICARE, OTHER | LOC: M SFHCWAGY 15:32 | PROVIDERS: ATTEND Obstetrics & Gynecology | DX: Z12.4 Encounter for screening for malignant neoplasm of cervix (principal); R30.0 Dysuria; N89.8 Other specified noninflammatory disorders of vagina; A59.01 Trichomonal vulvovaginitis; R87.618 Other abnormal cytological findings on specimens from cervix uteri | CPT/HCPCS: 87086; 87624; 88305; G0123 ==

== ENCOUNTER → 2023-12-31 | Outpatient (REF) | payer MEDICARE, OTHER | LOC: M LAB REF 16:39 | PROVIDERS: ATTEND Surgery | DX: L72.11 Pilar cyst (principal) ==

== ENCOUNTER 2024-05-26 16:14 | Inpatient (IN) | payer MEDICAID, MEDICARE, OTHER ==
[~2024-05-26] VITALS: Ht 157.5 cm; Wt 58.9 kg
[2024-05-26] MEDS ORDERED: SPIR50TA4 (16:26)
[2024-05-26] MEDS ORDERED: OMEP40CA5 (16:26)
[2024-05-26 17:36] LABS: LIPASE 38 U/L (12-53)
[2024-05-26 17:38] LABS: ALBUMIN 3.9 G/DL (3.2-5.2); ALKALINE PHOSPHATASE 88 U/L (46-116); ALT/SGPT 22 U/L (7.0-40); AST/SGOT 14 U/L (<34); BILIRUBIN,DIRECT < 0.1 MG/DL (<0.4); BILIRUBIN,TOTAL 0.3 MG/DL (0.3-1.2); BLOOD UREA NITROGEN 31 MG/DL (9-23); CALCIUM LEVEL 9.6 MG/DL (8.3-10.6); CARBON DIOXIDE LEVEL 25 MMOL/L (20-31); CHLORIDE LEVEL 106 MMOL/L (98-107); GLOMERULAR FILTRATION RATE > 60.0 (>45); GLUCOSE, FASTING 100 MG/DL (74-106); POTASSIUM SERUM 4.2 MMOL/L (3.5-5.1); SODIUM LEVEL 138 MMOL/L (136-145); TOTAL PROTEIN 6.8 G/DL (5.7-8.2)
[2024-05-26 17:54] LABS: BASO # 0.1 10^3/uL (0.0-0.2); BASO % 0.9 % (0.0-1.0); EOS # 0.9 10^3/uL (0.0-0.5); EOS % 7.2 % (0.0-3.0); HEMATOCRIT 38.2 % (36.0-47.0); HEMOGLOBIN 12.5 g/dl (12.0-15.5); LYMPH # 3.5 10^3/uL (1.5-5.0); LYMPH % 27.9 % (24.0-44.0); MEAN CORPUSCULAR HEMOGLOBIN 30.5 pg (27.0-33.0); MEAN CORPUSCULAR HGB CONC 32.7 g/dl (32.0-36.5); MEAN CORPUSCULAR VOLUME 93.2 fl (80.0-96.0); MONO # 0.9 10^3/uL (0.0-0.8); MONO % 7.3 % (2.0-8.0); NEUTROPHILS # 7.1 10^3/uL (1.5-8.5); NEUTROPHILS % 56.1 % (36.0-66.0); PLATELET COUNT, AUTOMATED 379 10^3/uL (150-450); WHITE BLOOD COUNT 12.7 10^3/uL (4.0-10.0)
[2024-05-26 20:42] LABS: INR 0.99; PARTIAL THROMBOPLASTIN TIME 26.4 SECONDS (24.8-34.2); PROTHROMBIN TIME 12.8 SECONDS (12.5-14.5)
[2024-05-26] MEDS ORDERED: ISOVUE-370 76% 100ML VIAL As Ordered ONE (22:17)
[2024-05-26] MEDS: ACETAMINOPHEN *IV* 1,000 MG in IV 1 EA IV ONE (22:33)
[2024-05-26] MEDS: NS 1,000 ML IV ONE (22:34)
[2024-05-27] MEDS ORDERED: SPIR50TA4 PO (01:42)
[2024-05-27] MEDS ORDERED: MAGN400T35 PO (01:42)
[2024-05-27] MEDS ORDERED: OMEP40CA4 PO (01:42)
[2024-05-27] MEDS ORDERED: MULT-40 PO (01:42)
[2024-05-27] MEDS ORDERED: HOME MED LIST COMPLETE! XX SCH (01:45)
[2024-05-27] MEDS ORDERED: ACETAMINOPHEN TAB 650MG DOSE (2X325MG) PO PRN (02:55)
[2024-05-27] MEDS ORDERED: ONDANSETRON 4MG 2ML VIAL IV PRN (03:10)
[2024-05-27 07:28] LABS: ALBUMIN 3.2 G/DL (3.2-5.2); ALKALINE PHOSPHATASE 67 U/L (46-116); ALT/SGPT 18 U/L (7.0-40); AST/SGOT 10 U/L (<34); BILIRUBIN,TOTAL 0.5 MG/DL (0.3-1.2); BLOOD UREA NITROGEN 18 MG/DL (9-23); CALCIUM LEVEL 8.9 MG/DL (8.3-10.6); CARBON DIOXIDE LEVEL 26 MMOL/L (20-31); CHLORIDE LEVEL 109 MMOL/L (98-107); CREATININE FOR GFR 0.66 MG/DL (0.55-1.30); GLOMERULAR FILTRATION RATE > 60.0 (>45); GLUCOSE, FASTING 95 MG/DL (74-106); SODIUM LEVEL 140 MMOL/L (136-145); TOTAL PROTEIN 5.8 G/DL (5.7-8.2)
[2024-05-27 07:37] LABS: HEMATOCRIT 33.6 % (36.0-47.0); HEMOGLOBIN 11.1 g/dl (12.0-15.5); MEAN CORPUSCULAR HEMOGLOBIN 30.7 pg (27.0-33.0); MEAN CORPUSCULAR VOLUME 93.1 fl (80.0-96.0); PLATELET COUNT, AUTOMATED 282 10^3/uL (150-450); RED BLOOD COUNT 3.61 10^6/uL (4.00-5.40); WHITE BLOOD COUNT 9.6 10^3/uL (4.0-10.0)
[2024-05-27] MEDS: OMEPRAZOLE 20MG CAP PO SCH (11:14)
[2024-05-27] MEDS: VITAMIN D 1,000 INTERNATIONAL UNITS TABLET PO SCH (11:14)
[2024-05-27] MEDS: buPROPion **XL** TABLET 150MG (WELLBUTRIN XL) PO SCH (11:14)
[2024-05-27 11:55] VITALS: BP 146/78; TEMP 97.1; O2SAT 98
[2024-05-27] MEDS: LR 1,000 ML IV ONE (12:55)
[2024-05-27 13:12] LABS: IRON (FE) 111 UG/DL (50-170); PERCENT SATURATION 35.9 % (13.2-45.0); TOTAL IRON BINDING CAPACITY 309 UG/DL (250-425)
[2024-05-27 13:14] LABS: FERRITIN 156.7 NG/ML (7.3-270.7)
[2024-05-27 13:15] LABS: FOLATE > 24.00 NG/ML (>5.4); VITAMIN B12 LEVEL 626 PG/ML (211-911)
[2024-05-27 15:11] LABS: HEMATOCRIT 33.2 % (36.0-47.0); HEMOGLOBIN 10.8 g/dl (12.0-15.5); MEAN CORPUSCULAR HEMOGLOBIN 30.5 pg (27.0-33.0); MEAN CORPUSCULAR HGB CONC 32.5 g/dl (32.0-36.5); MEAN CORPUSCULAR VOLUME 93.8 fl (80.0-96.0); PLATELET COUNT, AUTOMATED 296 10^3/uL (150-450); RED BLOOD COUNT 3.54 10^6/uL (4.00-5.40); WHITE BLOOD COUNT 8.5 10^3/uL (4.0-10.0)
[2024-05-27 16:37] VITALS: BP 130/80; TEMP 98.1; O2SAT 97
[2024-05-27 19:43] LABS: HEMATOCRIT 32.3 % (36.0-47.0); HEMOGLOBIN 10.6 g/dl (12.0-15.5); MEAN CORPUSCULAR HEMOGLOBIN 30.6 pg (27.0-33.0); MEAN CORPUSCULAR HGB CONC 32.8 g/dl (32.0-36.5); MEAN CORPUSCULAR VOLUME 93.4 fl (80.0-96.0); PLATELET COUNT, AUTOMATED 289 10^3/uL (150-450); RED BLOOD COUNT 3.46 10^6/uL (4.00-5.40); WHITE BLOOD COUNT 9.1 10^3/uL (4.0-10.0)
[2024-05-27 20:00] VITALS: BP 151/84; TEMP 96.6; O2SAT 97
[2024-05-28] VITALS: BP 127/75; TEMP 96.8; O2SAT 95
[2024-05-28 01:06] LABS: HEMATOCRIT 31.7 % (36.0-47.0); HEMOGLOBIN 10.8 g/dl (12.0-15.5); MEAN CORPUSCULAR HEMOGLOBIN 31.4 pg (27.0-33.0); MEAN CORPUSCULAR HGB CONC 34.1 g/dl (32.0-36.5); MEAN CORPUSCULAR VOLUME 92.2 fl (80.0-96.0); PLATELET COUNT, AUTOMATED 291 10^3/uL (150-450); RED BLOOD COUNT 3.44 10^6/uL (4.00-5.40); WHITE BLOOD COUNT 8.5 10^3/uL (4.0-10.0)
[2024-05-28 04:00] VITALS: BP 132/75; TEMP 96.4; O2SAT 99
[2024-05-28 08:05] VITALS: BP 139/71; TEMP 97.4; O2SAT 98
[2024-05-28 08:24] LABS: HEMATOCRIT 35.4 % (36.0-47.0); HEMOGLOBIN 11.6 g/dl (12.0-15.5); MEAN CORPUSCULAR HEMOGLOBIN 30.4 pg (27.0-33.0); MEAN CORPUSCULAR HGB CONC 32.8 g/dl (32.0-36.5); MEAN CORPUSCULAR VOLUME 92.7 fl (80.0-96.0); PLATELET COUNT, AUTOMATED 314 10^3/uL (150-450); RED BLOOD COUNT 3.82 10^6/uL (4.00-5.40); WHITE BLOOD COUNT 7.7 10^3/uL (4.0-10.0)
[2024-05-28 11:01] VITALS: BP 143/78
[2024-05-28 11:04] VITALS: BP 156/89
[2024-05-28 11:06] VITALS: BP 161/79
[2024-05-28 13:22] LABS: HEMATOCRIT 36.4 % (36.0-47.0); HEMOGLOBIN 12.1 g/dl (12.0-15.5); MEAN CORPUSCULAR HEMOGLOBIN 30.9 pg (27.0-33.0); MEAN CORPUSCULAR HGB CONC 33.2 g/dl (32.0-36.5); MEAN CORPUSCULAR VOLUME 92.9 fl (80.0-96.0); PLATELET COUNT, AUTOMATED 342 10^3/uL (150-450); RED BLOOD COUNT 3.92 10^6/uL (4.00-5.40); WHITE BLOOD COUNT 10.5 10^3/uL (4.0-10.0)
== END 2024-05-28 14:11 | disposition home or self-care (01) | DRG 379 ==
LOC: M ED 16:14 → M ED INP 16:15 → M MS4PR 05-27 11:55 → OBSVTOIN 05-27 15:03
PROVIDERS: ADMIT Preventive Medicine Undersea and Hyperbaric Medicine; ATTEND Student in an Organized Health Care Education/Training Program
DX: K57.31 Diverticulosis of large intestine without perforation or abscess with bleeding (principal); F32.A Depression, unspecified; I10 Essential (primary) hypertension; D64.9 Anemia, unspecified; K21.9 Gastro-esophageal reflux disease without esophagitis; Z79.899 Other long term (current) drug therapy; E53.8 Deficiency of other specified B group vitamins

== ENCOUNTER → 2024-06-22 | Outpatient (CLI) | payer MEDICARE, OTHER ==
[~2024-06-22] MED LIST changes: +MAGN400T35 PO; +MULT-40 PO; +OMEP40CA4 PO; +OMEP40CA5; +SPIR50TA4; +SPIR50TA4 PO
== END ==
LOC: M WHC 10:02
PROVIDERS: ATTEND Nurse Practitioner Adult Health
DX: Z12.31 Encounter for screening mammogram for malignant neoplasm of breast (principal)

== ENCOUNTER 2024-07-01 09:46 | Day surgery (SDC) | payer MEDICARE ==
[~2024-07-01] VITALS: Ht 157.5 cm; Wt 57.6 kg
[2024-07-01] MEDS: NS 1,000 ML IV ONE (10:03)
[2024-07-01 11:22] VITALS: TEMP 97.8
[2024-07-01] MEDS ORDERED: propofoL 200 MG/20 ML VIAL As Ordered ONE (11:24)
[2024-07-01 11:46] VITALS: BP 113/75; O2SAT 100
== END 2024-07-01 11:53 | disposition home or self-care (01) ==
LOC: M OPP 09:46
PROVIDERS: ATTEND Surgery
DX: Z12.11 Encounter for screening for malignant neoplasm of colon (principal); Z86.010 Personal history of colon polyps; K63.5 Polyp of colon; K64.1 Second degree hemorrhoids; K92.1 Melena; Z87.891 Personal history of nicotine dependence; Z79.899 Other long term (current) drug therapy

== ENCOUNTER → 2024-09-08 | Outpatient (CLI) | payer MEDICARE | LOC: M RAD 10:55 | PROVIDERS: ATTEND Nurse Practitioner Adult Health | DX: Z12.2 Encounter for screening for malignant neoplasm of respiratory organs (principal); Z87.891 Personal history of nicotine dependence ==

== ENCOUNTER → 2025-07-26 | Outpatient (CLI) | payer MEDICARE, OTHER ==
[2025-07-26 12:09] LABS: PLATELET COUNT, AUTOMATED 316 10^3/uL (150-450)
[2025-07-26 12:44] LABS: ESTIMATED AVERAGE GLUCOSE 120.0 MG/DL (60-110)
[2025-07-26 12:56] LABS: FREE T4 1.28 NG/DL (0.89-1.76)
[2025-07-26 12:57] LABS: TOTAL 25(OH) VITAMIN D 61.9 NG/ML (20.0-100.0)
[2025-07-26 13:01] LABS: ALT/SGPT 27.0 U/L (7.0-40); AST/SGOT 28.0 U/L (<34); CALCIUM LEVEL 10.1 MG/DL (8.3-10.6); CARBON DIOXIDE LEVEL 28.0 MMOL/L (20-31); CHLORIDE LEVEL 105.0 MMOL/L (98-107); CHOLESTEROL LEVEL 272.0 MG/DL (<200); CHOLESTEROL RISK RATIO 4.74 (<5); CREATININE FOR GFR 0.74 MG/DL (0.55-1.30); GLOMERULAR FILTRATION RATE 88.1 (>45); LDL CHOLESTEROL 145.5 MG/DL (<100); NON-HDL-C 214.7 MG/DL; POTASSIUM SERUM 4.6 MMOL/L (3.5-5.1); SODIUM LEVEL 143.0 MMOL/L (136-145); TRIGLYCERIDES LEVEL 346.0 MG/DL (<150)
== END ==
LOC: M WUC 09:33
PROVIDERS: ATTEND Nurse Practitioner Adult Health
DX: Z00.00 Encounter for general adult medical examination without abnormal findings (principal); I10 Essential (primary) hypertension; Z13.9 Encounter for screening, unspecified; E78.2 Mixed hyperlipidemia; E55.9 Vitamin D deficiency, unspecified; Z79.899 Other long term (current) drug therapy

== ENCOUNTER → 2025-08-17 | Outpatient (CLI) | payer MEDICARE | LOC: M WHC 15:01 | PROVIDERS: ATTEND Nurse Practitioner Adult Health | DX: Z12.31 Encounter for screening mammogram for malignant neoplasm of breast (principal) ==